=== PATIENT | male | born 1990 | race Caucasian/White ===

== ENCOUNTER 2016-10-11 09:03 | Emergency (ER) | payer SELFPAY ==
[~2016-10-11] VITALS: Ht 172.7 cm; Wt 80.0 kg
[2016-10-11 09:37] VITALS: BP 121/58; PULSE 70; RESP 20; TEMP 98.7; O2SAT 94
--- NOTE | 2016-10-11 09:55 | PD ---
HPI Chief Complaint: Injury Time Seen by Provider: 09:44 Travel History International Travel<30 days: No Contact w/Intl Traveler<30days: No Traveled to known affect area: No History of Present Illness HPI Patient is a 26-year-old male who presents emergency for evaluation of right hand pain. Patient states he was riding his skateboard at approximately 1 AM when he fell injuring his right hand. He denies any numbness or tingling in his hand, he states it's painful to open and close it. He denies any significant past medical history. Patient denies any IV drug use. Denies any head injury or loss of consciousness. PFSH Past Medical History Medical History: Denies Significant Hx Social History Alcohol Use: No Tobacco Use: Yes Substance Use: No Allergies-Medications (Allergen,Severity, Reaction): Coded Allergies: No Known Allergies (Unverified , 10/11/16) Reported Meds & Prescriptions Reported Meds & Active Scripts Active Ibuprofen 800 Mg Tab 800 Mg PO Q6HR PRN Review of Systems Except as stated in HPI: all other systems reviewed are Neg Musculoskeletal: Positive: Myalgias, Edema, Pain Physical Exam Narrative GENERAL: Well-nourished, well-developed patient. SKIN: Warm and dry. HEAD: Normocephalic. EYES: No scleral icterus. No injection or drainage. NECK: Supple, trachea midline. No JVD or lymphadenopathy. CARDIOVASCULAR: Regular rate and rhythm without murmurs, gallops, or rubs. RESPIRATORY: Breath sounds equal bilaterally. No accessory muscle use. GASTROINTESTINAL: Abdomen soft, non-tender, nondistended. MUSCULOSKELETAL: No cyanosis, edema noted over the dorsal aspect of the right hand, more so over the third, fourth, and fifth MCP. Positive radial pulse, brisk less than 3 second capillary refill, decreased manager of digital strength on the right. BACK: Nontender without obvious deformity. No CVA tenderness. Data Data Last Documented VS Vital Signs Date Time Temp Pulse Resp B/P Pulse Ox O2 Delivery O2 Flow Rate FiO2 10/11/16 09:37 98.7 70 20 121/58 94 Orders Hand, Complete ([id number]) (10/11/16 ) Splinting (10/11/16 ) Ibuprofen (Motrin) (10/11/16 10:45) MDM Medical Decision Making Medical Screen Exam Complete: Yes Emergency Medical Condition: Yes Interpretation(s) Vital Signs Date Time Temp Pulse Resp B/P Pulse Ox O2 Delivery O2 Flow Rate FiO2 10/11/16 09:37 98.7 70 20 121/58 94 Differential Diagnosis Fracture versus sprain versus strain versus contusion versus other Narrative Course Patient is a 26 year old male who presents emergency for evaluation of right hand pain secondary to falling off of his skateboard at approximately 1 AM this morning. Patient states that he fell onto his right hand and knuckles however there are no abrasions to support the fact that he fell onto that hand. The hand is swollen on the dorsal aspect and tender to palpation. Patient is neurovascularly intact, x-rays pending. X-ray of the right hand shows a mildly angulated fracture of the fifth MCP. Patient will be placed in an ulnar gutter splint is neurovascularly intact. He was advised of the findings as well as need for follow-up with a hand surgeon. Patient states that as of October 09, he has health insurance. He was encouraged to come back to emergency department if he is unable to follow-up with hand surgeon. He was advised to come back to emergency department for any new or worsening symptoms. Patient verbalizes understanding of these instructions. He states he's had multiple broken bones in the past and knows what to do. Patient is stable for discharge. Diagnosis Primary Impression: Hand fracture, right Qualified Code: S62.91XA - Hand fracture, right, closed, initial encounter Referrals: Leo Long III, MD 3 days Hand Surgeon 3 days Patient Instructions: General Instructions, Hand Fracture (ED) Additional Instructions: Follow-up with hand surgeon, the name of a hand surgeon has been provided to you on your discharge information. You can choose to follow-up with hand surgeon of your choice or based on your insurance company's preference Returned to the Emergency department for any new or worsening symptoms or if you are unable to follow-up with a specialist for any reason Follow-up with your primary doctor Med/Other Pt SpecificInfo: Prescription(s) given Scripts Ibuprofen 800 Mg [id number] Mg PO Q6HR PRN (PAIN) #40 TAB Ref 0 Prov:Nicole Crockett 10/11/16 Nicole Crockett Oct 11, 2016 09:55 Condition: Stable Nicoel Crockett Oct 11, 2016 09:55
--- NOTE | 2016-10-11 10:28 | RADRPT ---
EXAM DATE/TIME: 10/11/2016 10:12 [facility] COMPARISON: No previous studies available for comparison. INDICATIONS : Patient states was riding skateboard last night and fell off, hitting right hand on the ground. Arrow indicating where most of pain is located. MEDICAL HISTORY : None. SURGICAL HISTORY : None. ENCOUNTER: Initial ACUITY: 1 day PAIN SCORE: 8/10 LOCATION: Right Hand FINDINGS: There is a mildly angulated fracture of the distal right fifth metacarpal with overlying soft tissue swelling. No dislocation. CONCLUSION: 1. Mildly angulated fracture distal right fifth metacarpal with overlying soft tissue swelling. Peterson Almeida MD on October 11, 2016 at 10:25 Board Certified Radiologist. This report was verified electronically.
[2016-10-11] MEDS ORDERED: IBUPROFEN 800 MG TAB PO ONE (10:45)
[2016-10-11] MEDS ORDERED: IBUP800T23 PO (10:50)
== END 2016-10-11 11:31 | disposition home or self-care (01) ==
LOC: NEPB 09:03
DX: S62.91XA Unspecified fracture of right hand, initial encounter for closed fracture (principal); V00.131A Fall from skateboard, initial encounter; Y93.51 Activity, roller skating (inline) and skateboarding
CPT/HCPCS: 29125; 73130

== ENCOUNTER 2016-12-12 20:09 | Emergency (ER) | payer SELFPAY ==
[~2016-12-12] VITALS: Ht 172.7 cm; Wt 72.0 kg
[~2016-12-12 20:09] MED LIST: IBUP800T23 PO
[2016-12-12 20:11] VITALS: BP 123/70; PULSE 74; RESP 18; TEMP 98.1; O2SAT 98
[2016-12-12] MEDS ORDERED: DICL75TA PO (22:44)
[2016-12-12] MEDS ORDERED: CLIN150 PO (22:44)
[2016-12-12] MEDS ORDERED: CLINDAMYCIN PHOS 600 MG/4 ML VIAL IM ONE (22:45)
[2016-12-12] MEDS ORDERED: IBUPROFEN 800 MG TAB PO ONE (22:45)
--- NOTE | 2016-12-12 22:48 | PD ---
HPI Chief Complaint: Skin Problem Time Seen by Provider: 22:44 Travel History International Travel<30 days: No Contact w/Intl Traveler<30days: No Traveled to known affect area: No History of Present Illness HPI 26-year-old white male presents to emergency Department with a 2 to three-day history of right inner thigh redness, swelling and pain. 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 He does get his legs chafed at times. He is noted subjective fever and chills, cough, congestion, pleuritic chest wall pain and general malaise. He denies any shortness of breath or wheezing. No nausea vomiting. No abdominal pain or diarrhea. No dysuria or frequency. Symptoms are moderate. [facility] Past Medical History Narrative Medical Asthma as a child Diminished Hearing: No Tetanus Vaccination: < 5 Years Past Surgical History Surgical History: No Previous Surgery Other Surgery: Yes (RIGHT HAND) Social History Alcohol Use: No Tobacco Use: Yes (/ PPD) Substance Use: No Allergies-Medications (Allergen,Severity, Reaction): Coded Allergies: No Known Allergies (Unverified , 12/12/16) Reported Meds & Prescriptions Reported Meds & Active Scripts Active Ibuprofen 800 Mg Tab 800 Mg PO Q6HR PRN Review of Systems Except as stated in HPI: all other systems reviewed are Neg Physical Exam Narrative GENERAL: Well-developed, well-nourished in no apparent distress. Nontoxic appearing. HEAD: Normocephalic, atraumatic. EYES: Pupils equal round and reactive. Extraocular motions intact. No scleral icterus. No injection or drainage. ENT: Nose clear. Throat without erythema, tonsillar hypertrophy or exudate. Uvula midline. Airway patent. NECK: Trachea midline. Supple, nontender, moves head freely. No central bony tenderness or spasm. CARDIOVASCULAR: Regular rate and rhythm without murmurs, gallops, or rubs. RESPIRATORY: Few fine extra wheezes. No Rales or rhonchi. No or stridor distress. GASTROINTESTINAL: Abdomen soft, non-tender, nondistended. No hepato-splenomegaly , or palpable masses. No guarding. EXTREMITIES: No clubbing, cyanosis, or edema. No joint tenderness. BACK: Nontender without deformity. No flank tenderness. NEUROLOGICAL: Awake, alert and oriented x 3 .Cranial nerves grossly intact. Motor and sensory grossly within normal limits. Normal speech. Skin: The patient has a area of erythema, warmth to the right inner thigh measuring 8 x 8 cm. He has several central follicular lesions. There is no fluctuance or pointing. Data Data Last Documented VS Vital Signs Date Time Temp Pulse Resp B/P Pulse Ox O2 Delivery O2 Flow Rate FiO2 12/12/16 20:11 98.1 74 18 123/70 98 Room Air Orders Electrocardiogram (12/12/16 21:26) Clindamycin Inj (Cleocin Inj) (12/12/16 22:45) Ibuprofen (Motrin) (12/12/16 22:45) MDM Medical Decision Making Medical Screen Exam Complete: Yes Emergency Medical Condition: Yes Medical Record Reviewed: Yes Differential Diagnosis MDM: High Differential diagnoses: Abscess, folliculitis, cellulitis, lymphangitis, abrasion, contact dermatitis, URI, bronchitis, pneumonia Narrative Course Patient is given clindamycin 600 mg IM, Motrin 800 mg by mouth. This is right thigh cellulitis, URI Diagnosis Primary Impression: Cellulitis of right thigh Additional Impression: URI, acute Patient Instructions: General Instructions Departure Forms: Tests/Procedures, Work Release Special Instructions: No work 3 days. Additional Instructions: Rest. Elevation. keep clean and dry. Warm compresses. Daily wound care with soap, water and Neosporin. Clindamycin and diclofenac. Recheck with your doctor in 48 hours. Return to the ER for any problems. Med/Other Pt SpecificInfo: Prescription(s) given, Wound Care Scripts Diclofenac Sodium DR 75 Mg Tabdr75 Mg PO BID #20 TAB Prov:Matteo Valladares MD 12/12/16 Clindamycin (Cleocin)150 Mg Stp191 Mg PO Q6H #80 CAP Prov:Matteo Valladares MD 12/12/16 Disposition: 01 DISCHARGE HOME Condition: Stable Peterson Tolbert Dec 12, 2016 22:48
--- NOTE | 2016-12-13 11:34 | EKG ---
Date Performed: 12/12/2016 Time Performed: 21:26:44 PTAGE: 26 years EKG: SINUS BRADYCARDIA BORDERLINE ECG NO PREVIOUS TRACING DOCTOR: Alex Craig Interpretating Date/Time 12/13/2016 11:33:41
== END 2016-12-12 23:09 | disposition home or self-care (01) ==
LOC: NEPB 20:09
DX: L03.115 Cellulitis of right lower limb (principal); R50.9 Fever, unspecified; R05 Cough; R07.81 Pleurodynia; R53.81 Other malaise; R94.31 Abnormal electrocardiogram [ECG] [EKG]; F17.200 Nicotine dependence, unspecified, uncomplicated; Z87.09 Personal history of other diseases of the respiratory system
CPT/HCPCS: 93005; 96372

== ENCOUNTER 2017-07-24 17:10 | Emergency (ER) | payer OTHER ==
[~2017-07-24] VITALS: Ht 172.7 cm; Wt 67.0 kg
[~2017-07-24 17:10] MED LIST changes: +CLIN150 PO; +DICL75TA PO
[2017-07-24 17:48] VITALS: BP 120/70; PULSE 63; RESP 19; TEMP 98.1; O2SAT 96
[2017-07-24 18:42] LABS: AUTOMATED NEUTROPHIL # 6.6 TH/MM3 (1.8-7.7); BASOPHIL # 0.1 TH/MM3 (0-0.2); EOSINOPHIL # 0.1 TH/MM3 (0-0.4); HEMATOCRIT 44.4 % (39.0-51.0); HEMO FLAGS DIFF FINAL; LYMPHOCYTE # 2.8 TH/MM3 (1.0-4.8); MEAN CELL VOLUME 87.3 FL (80.0-100.0); MEAN CORPUSCULAR HEMOGLOBIN 30.5 PG (27.0-34.0); MONO % 6.6 % (0.0-8.0); NEUT % 64.4 % (16.0-70.0); PLATELET COUNT 322 TH/MM3 (150-450); RED BLOOD COUNT 5.08 MIL/MM3 (4.50-5.90); RED CELL DISTRIBUTION WIDTH 12.9 % (11.6-17.2); WHITE BLOOD COUNT 10.2 TH/MM3 (4.0-11.0)
[2017-07-24 18:51] LABS: BLOOD, URINE NEG (NEG); CALCIUM OXALATE CRYSTALS,URINE OCC /hpf; COMMENT (UR) CULT NOT INDICATED; CULTURE IF INDICATED CULT NOT INDICATED; GLUCOSE,URINE NEG (NEG); KETONE, URINE NEG (NEG); MUCUS URINE FEW /lpf (OCC); NITRITE,URINE NEG (NEG); URINE COLOR YELLOW (YELLW/STRAW)
[2017-07-24 19:10] LABS: ALKALINE PHOSPHATASE 81 U/L (45-117); ALT (GPT) 59 U/L (12-78); TOTAL BILIRUBIN ADULT 0.5 MG/DL (0.2-1.0)
--- NOTE | 2017-07-24 19:18 | PD ---
HPI Chief Complaint: Psychiatric Symptoms Time Seen by Provider: 17:53 Travel History International Travel<30 days: No Contact w/Intl Traveler<30days: No Traveled to known affect area: No History of Present Illness HPI 27-year-old male presents to the emergency room for evaluation of suicidal ideation. Patient states he wants to kill himself because he has nothing to live for. States he is an IV drug abuser and he is sick of it because it has destroyed his life. Patient was telling his brother these things this morning and his brother called 911. States he normally injects IV heroin. He is not sensitive 3 days. States he has been going through withdrawals including severe restless leg syndrome, chills, and nausea with vomiting. This morning he injected a form of Suboxone. He also took a bunch of pills this morning to counteract withdrawal symptoms. Pills included Robaxin and ibuprofen. Patient denies any alcohol use. Denies chronic medical conditions. He does report some left-sided chest pain. He has history of cocaine abuse. [facility] Past Medical History Medical History: Denies Significant Hx Diminished Hearing: No Tetanus Vaccination: Unknown Influenza Vaccination: No Past Surgical History Other Surgery: Yes (RIGHT HAND) Social History Alcohol Use: No Tobacco Use: Yes (1/2 PPD) Substance Use: Yes ("ANYTHING") Allergies-Medications (Allergen,Severity, Reaction): Coded Allergies: No Known Allergies (Unverified , 07/24/17) Reported Meds & Prescriptions Reported Meds & Active Scripts Active No Active Prescriptions or Reported Medications Review of Systems Except as stated in HPI: all other systems reviewed are Neg Physical Exam Narrative GENERAL: Well-nourished, well-developed male in no acute distress. Afebrile. Ambulatory. SKIN: Focused skin assessment warm/dry. Multiple track osman to bilateral upper and shortness. HEAD: Normocephalic. EYES: No scleral icterus. No injection or drainage. NECK: Supple, trachea midline. No JVD or lymphadenopathy. CARDIOVASCULAR: Regular rate and rhythm without murmurs, gallops, or rubs. RESPIRATORY: Breath sounds equal bilaterally. No accessory muscle use. PSYCHIATRIC: No delusional thought processes. No hallucinations. Depressed mood. Normal affect Data Data Last Documented VS Vital Signs Date Time Temp Pulse Resp B/P (MAP) Pulse Ox O2 Delivery O2 Flow Rate FiO2 07/24/17 17:48 98.1 63 19 120/70 (87) 96 Orders Orders Complete Blood Count With Diff (07/24/17 17:36) Comprehensive Metabolic Panel (07/24/17 17:36) Urinalysis - C+S If Indicated (07/24/17 17:36) Psych Screen (07/24/17 17:36) Drug Screen, Random Urine (07/24/17 17:36) Alcohol (Ethanol) (07/24/17 17:36) Salicylates (Aspirin) (07/24/17 17:36) Tylenol (Acetaminophen) (07/24/17 17:36) Troponin I (07/24/17 19:12) Ckmb (Isoenzyme) Profile (07/24/17 19:12) Electrocardiogram (07/24/17 ) Lorazepam (Ativan) (07/24/17 20:45) Labs Laboratory Tests Test 07/24/17 17:35 White Blood Count 10.2 TH/MM3 Red Blood Count 5.08 MIL/MM3 Hemoglobin 15.5 GM/DL Hematocrit 44.4 % Mean Corpuscular Volume 87.3 FL Mean Corpuscular Hemoglobin 30.5 PG Mean Corpuscular Hemoglobin Concent 35.0 % Red Cell Distribution Width 12.9 % Platelet Count 322 TH/MM3 Mean Platelet Volume 7.6 FL Neutrophils (%) (Auto) 64.4 % Lymphocytes (%) (Auto) 27.0 % Monocytes (%) (Auto) 6.6 % Eosinophils (%) (Auto) 1.0 % Basophils (%) (Auto) 1.0 % Neutrophils # (Auto) 6.6 TH/MM3 Lymphocytes # (Auto) 2.8 TH/MM3 Monocytes # (Auto) 0.7 TH/MM3 Eosinophils # (Auto) 0.1 TH/MM3 Basophils # (Auto) 0.1 TH/MM3 CBC Comment DIFF FINAL Differential Comment Urine Color YELLOW Urine Turbidity CLEAR Urine pH 6.0 Urine Specific [place] 1.031 Urine Protein TRACE mg/dL Urine Glucose (UA) NEG mg/dL Urine Ketones NEG mg/dL Urine Occult Blood NEG Urine Nitrite NEG Urine Bilirubin NEG Urine Urobilinogen 2.0 MG/DL Urine Leukocyte Esterase NEG Urine RBC LESS THAN 1 /hpf Urine WBC LESS THAN 1 /hpf Urine Calcium Oxalate Crystals OCC /hpf Urine Mucus FEW /lpf Microscopic Urinalysis Comment CULT NOT INDICATED Blood Urea Nitrogen 14 MG/DL Creatinine 0.93 MG/DL Random Glucose 85 MG/DL Total Protein 8.9 GM/DL Albumin 4.0 GM/DL Calcium Level 9.8 MG/DL Alkaline Phosphatase 81 U/L Aspartate Amino Transf (AST/SGOT) 43 U/L Alanine Aminotransferase (ALT/SGPT) 59 U/L Total Bilirubin 0.5 MG/DL Sodium Level 138 MEQ/L Potassium Level 4.0 MEQ/L Chloride Level 105 MEQ/L Carbon Dioxide Level 26.6 MEQ/L Anion Gap 6 MEQ/L Estimat Glomerular Filtration Rate 97 ML/MIN Total Creatine Kinase 88 U/L Troponin I LESS THAN 0.02 NG/ML Salicylates Level 4.1 MG/DL Urine Opiates Screen POS Acetaminophen Level LESS THAN 2.0 MCG/ML Urine Barbiturates Screen NEG Urine Amphetamines Screen NEG Urine Benzodiazepines Screen POS Urine Cocaine Screen POS Urine Cannabinoids Screen POS Ethyl Alcohol Level LESS THAN 3 MG/DL MDM Medical Decision Making Medical Screen Exam Complete: Yes Emergency Medical Condition: Yes Medical Record Reviewed: Yes Differential Diagnosis Suicidal ideation, bipolar disorder, withdrawal, substance abuse mood disorder Narrative Course 27-year-old male presents to the emergency room via police under Ricks act for evaluation of suicidal ideation. Patient states he is an IV drug user and fed up with his life because he has lost everything over the past 2 years. He states he has no reason to live. He reports left-sided chest pain at this time without radiation, nausea, vomiting, or shortness of breath. EKG shows a rhythm with a rate of [address] changes.. Basic labs obtained. CBC and CMP are unremarkable. Troponin and CK-MB are negative. UA unremarkable. Drug screen positive for opioids, benzos, cocaine, and cannabinoids. Salicylate and acetaminophen within normal limits. Patient is visibly shaking because of opioid withdrawal. For this he was given 0.5 mg by mouth Ativan. Patient is medically cleared for psychiatric evaluation at this time. Diagnosis Primary Impression: Medical clearance for psychiatric admission Scripts No Active Prescriptions or Reported Meds Condition: Bessy Wild Jul 24, 2017 19:18
[2017-07-24 19:22] LABS: ACETAMINOPHEN LESS THAN 2.0 MCG/ML (10.0-30.0); ALCOHOL LESS THAN 3 MG/DL (0-5); ANION GAP 6 MEQ/L (5-15); AST (GOT) 43 U/L (15-37); BICARBONATE 26.6 MEQ/L (21.0-32.0); BLOOD UREA NITROGEN 14 MG/DL (7-18); CHLORIDE 105 MEQ/L (98-107); GLOMERULAR FILTRATION RATE 97 ML/MIN (>89); SODIUM (NA) 138 MEQ/L (136-145)
[2017-07-24 20:09] LABS: CREATINE KINASE 88 U/L (39-308)
[2017-07-24] MEDS ORDERED: LORazepam 0.5 MG TAB PO ONE (20:45)
[2017-07-24 23:00] VITALS: BP 99/49; PULSE 62; RESP 16; TEMP 98.2; O2SAT 98
[2017-07-25] MEDS ORDERED: LORazepam 0.5 MG TAB PO ONE (01:00)
[2017-07-25] MEDS ORDERED: CYCLOBENZAPRINE HCL 10 MG TAB PO ONE (04:15)
[2017-07-25 04:44] VITALS: BP 108/54; PULSE 53; RESP 16; TEMP 97.9; O2SAT 99
[2017-07-25 07:00] VITALS: BP 112/58; PULSE 60; RESP 16; O2SAT 99
[2017-07-25 11:00] VITALS: BP 102/69; PULSE 64; RESP 16; TEMP 97.8; O2SAT 99
[2017-07-25] MEDS ORDERED: IBUPROFEN 600 MG TAB PO ONE (12:30)
[2017-07-25 15:00] VITALS: BP 124/77; PULSE 76; RESP 16; TEMP 97.8; O2SAT 98
[2017-07-25 19:48] VITALS: BP 127/75; PULSE 74; RESP 18; O2SAT 99
[2017-07-25] MEDS ORDERED: diphenhydrAMINE HCL 50 MG CAP PO ONE (22:30)
[2017-07-26 02:18] VITALS: BP 112/59; PULSE 17; PULSE 71; RESP 18; O2SAT 98
[2017-07-26] MEDS ORDERED: IBUPROFEN 800 MG TAB PO ONE (05:45)
[2017-07-26 06:30] VITALS: BP 137/63; PULSE 98; RESP 18; O2SAT 99
--- NOTE | 2017-07-26 07:14 | EKG ---
Date Performed: 07/24/2017 Time Performed: 20:38:52 PTAGE: 27 years EKG: SINUS BRADYCARDIA Borderline short MA interval Compared to prior tracing no significant mark nge BORDERLINE ECG PREVIOUS TRACING : 12/12/2016 21.26 DOCTOR: Jayce Slater Interpretating Date/Time 07/26/2017 07:14:52
--- NOTE | 2017-07-26 09:43 | PD ---
History of Present Illness Chief Complaint: Psychiatric Symptoms Time Seen by Provider: 09:25 Travel History International Travel<30 Days: No Contact w/Intl Traveler<30days: No Known affected area: No Legal Status Legal Status: Ricks Act Ricks Act Signed By: Rodger Locke Ricks Act Comment: 07/24/2017 438 PM [facility]IVAS #[id number] History of Present Illness: History of Present Illness HPI 27-year-old male with history of substance use disorder and no psychiatric history who presents to ED under a ricks act. The report states " Yomi is making suicidal statements. Stated he is going to take a handful of pills to end it all. he is also having withdrawal from opiates. EMR reviewed . No previous contact with [facility] psychiatry. Current toxicology is positive for opiates, benzos, cocaine and cannabinoids. The patient has been monitored here in [facility] over extended period of time with no suicidality and no behavioral concerns This morning he tells me that he is feeling well and that " honestly I was never suicidal. I just told the police that so that they could bring me here. I don't want to hurt myself. I want treatment for my addiction and my family is working on it". He denies any psychiatric symptomatology and presents no objective clinical symptoms of depression or anxiety.he is requesting discharge and his brother will be picking him up. PFSH Past Medical History Medical History: Denies Significant Hx Diminished Hearing: No Tetanus Vaccination: Unknown Influenza Vaccination: No Past Surgical History Other Surgery: Yes (RIGHT HAND) Psychiatric History Psychiatric History Hx Psychiatric Treatment: Denies any No hx of previous suicide attempt. History of Inpatient Treatment: No Guns or firearms in home: No Social History Single male, unemployed. Lives with his grandmother. Hx Alcohol Use: No Hx Tobacco Use: Yes (1/2 PPD) Hx Substance Use: Yes (benzos, cocaine, marijuana, opiates) Substance Use Type: Marijuana, Nicotine/Cigarettes, Benzos (Valium,Xanax), Cocaine, Synth Opiates-Pain Pills Other Substances Used: 1ppd Hx of Substance Use Treatment: No Family Psychiatric History Negative Allergies-Medications (Allergen,Severity, Reaction): Coded Allergies: No Known Allergies (Unverified , 07/24/17) Reported Meds & Prescriptions Reported Meds & Active Scripts Active No Active Prescriptions or Reported Medications Review of Systems Except as stated in HPI: all other systems reviewed are Neg Mental Status Examination Appearance: Appropriate Consciousness: Alert Orientation: x4 Motor Activity: Normal gait Speech: Unremarkable Language: Adequate Fund of Knowledge: Adequate Attention and Concentration: Adequate Memory: Unremarkable Mood: Appropriate Affect: Appropriate Thought Process & Associations: Logical, Goal directed Thought Content: Appropriate Hallucination Type: None Delusion Type: None Suicidal Ideation: No Suicidal Plan: No Suicidal Intention: No Homicidal Ideation: No Homicidal Plan: No Homicidal Intention: No Insight: Adequate Judgment: Adequate MDM Medical Decision Making Medical Record Reviewed: Yes Assessment/Plan 27-year-old male with history of substance use disorder and no psychiatric history who presents to ED under a ricks act. The report states " Yomi is making suicidal statements. Stated he is going to take a handful of pills to end it all. he is also having withdrawal from opiates. Patient was monitored in secure environment with no suicidality. he admits to having reported he was feeling suicidal in order to be transported to the hospital to finish his detox process from opiates. He denies ever feeling suicidal. he is future oriented and wants to go into a rehabilitation program. he is future oriented with adequate protective factors. He does not show evidence of an unstable mental illness as per Ricks act. Lift Ricks act. Clear psychiatrically for discharge. Will be provided referrals to NA groups. Psychoeducation provided. Orders Orders Ibuprofen (Motrin) (07/25/17 12:30) Diphenhydramine (Benadryl) (07/25/17 22:30) Ibuprofen (Motrin) (07/26/17 05:45) Diet Regular Basic (07/26/17 Breakfast) Results Vital Signs Date Time Temp Pulse Resp B/P (MAP) Pulse Ox O2 Delivery O2 Flow Rate FiO2 07/26/17 06:30 98 18 137/63 (87) 99 Room Air 07/26/17 02:18 71 18 112/59 (76) 98 Room Air 07/25/17 19:48 74 18 127/75 (92) 99 Room Air 07/25/17 15:00 97.8 76 16 124/77 (93) 98 Room Air 07/25/17 13:28 16 07/25/17 11:00 97.8 64 16 102/69 (80) 99 Room Air Diagnosis Primary Impression: Opiate dependence Psychiatrically Cleared: Yes Additional Instructions: NA meetings Med/ Other Pt Specific Info: No Meds Exist/No RX given Prescriptions No Active Prescriptions or Reported Meds Disposition: 01 DISCHARGE HOME Condition: Stable Problem Qualifiers Primary Impression: Opiate dependence Qualified Codes: F11.23 - Opioid dependence with withdrawal Venecia Baez Jul 26, 2017 09:43
--- NOTE | 2017-07-26 09:58 | PD ---
Physical Exam Time Seen by Provider: 09:56 TAMICA Lockwood, has evaluated the patient, lifted the Ricks act and cleared the patient for discharge. The patient for follow-up with NA. Data Data Last Documented VS Vital Signs Date Time Temp Pulse Resp B/P (MAP) Pulse Ox O2 Delivery O2 Flow Rate FiO2 07/26/17 06:30 98 18 137/63 (87) 99 Room Air 07/25/17 15:00 97.8 Orders Orders Complete Blood Count With Diff (07/24/17 17:36) Comprehensive Metabolic Panel (07/24/17 17:36) Urinalysis - C+S If Indicated (07/24/17 17:36) Psych Screen (07/24/17 17:36) Drug Screen, Random Urine (07/24/17:36) Alcohol (Ethanol) (07/24/17 17:36) Salicylates (Aspirin) (07/24/17 17:36) Tylenol (Acetaminophen) (07/24/17 17:36) Troponin I (07/24/17 19:12) Ckmb (Isoenzyme) Profile (07/24/17 19:12) Electrocardiogram (07/24/17 ) Lorazepam (Ativan) (07/24/17 20:45) Lorazepam (Ativan) (07/25/17 01:00) Cyclobenzaprine (Flexeril) (07/25/17 04:15) Diet Regular Basic (07/25/17 Breakfast) Ibuprofen (Motrin) (07/25/17 12:30) Diphenhydramine (Benadryl) (07/25/17 22:30) Ibuprofen (Motrin) (07/26/17 05:45) Diet Regular Basic (07/26/17 Breakfast) Labs Laboratory Tests Test 07/24/17 17:35 White Blood Count 10.2 TH/MM3 Red Blood Count 5.08 MIL/MM3 Hemoglobin 15.5 GM/DL Hematocrit 44.4 % Mean Corpuscular Volume 87.3 FL Mean Corpuscular Hemoglobin 30.5 PG Mean Corpuscular Hemoglobin Concent 35.0 % Red Cell Distribution Width 12.9 % Platelet Count 322 TH/MM3 Mean Platelet Volume 7.6 FL Neutrophils (%) (Auto) 64.4 % Lymphocytes (%) (Auto) 27.0 % Monocytes (%) (Auto) 6.6 % Eosinophils (%) (Auto) 1.0 % Basophils (%) (Auto) 1.0 % Neutrophils # (Auto) 6.6 TH/MM3 Lymphocytes # (Auto) 2.8 TH/MM3 Monocytes # (Auto) 0.7 TH/MM3 Eosinophils # (Auto) 0.1 TH/MM3 Basophils # (Auto) 0.1 TH/MM3 CBC Comment DIFF FINAL Differential Comment Urine Color YELLOW Urine Turbidity CLEAR Urine pH 6.0 Urine Specific Industry 1.031 Urine Protein TRACE mg/dL Urine Glucose (UA) NEG mg/dL Urine Ketones NEG mg/dL Urine Occult Blood NEG Urine Nitrite NEG Urine Bilirubin NEG Urine Urobilinogen 2.0 MG/DL Urine Leukocyte Esterase NEG Urine RBC LESS THAN 1 /hpf Urine WBC LESS THAN 1 /hpf Urine Calcium Oxalate Crystals OCC /hpf Urine Mucus FEW /lpf Microscopic Urinalysis Comment CULT NOT INDICATED Blood Urea Nitrogen 14 MG/DL Creatinine 0.93 MG/DL Random Glucose 85 MG/DL Total Protein 8.9 GM/DL Albumin 4.0 GM/DL Calcium Level 9.8 MG/DL Alkaline Phosphatase 81 U/L Aspartate Amino Transf (AST/SGOT) 43 U/L Alanine Aminotransferase (ALT/SGPT) 59 U/L Total Bilirubin 0.5 MG/DL Sodium Level 138 MEQ/L Potassium Level 4.0 MEQ/L Chloride Level 105 MEQ/L Carbon Dioxide Level 26.6 MEQ/L Anion Gap 6 MEQ/L Estimat Glomerular Filtration Rate 97 ML/MIN Total Creatine Kinase 88 U/L Troponin I LESS THAN 0.02 NG/ML Salicylates Level 4.1 MG/DL Urine Opiates Screen POS Acetaminophen Level LESS THAN 2.0 MCG/ML Urine Barbiturates Screen NEG Urine Amphetamines Screen NEG Urine Benzodiazepines Screen POS Urine Cocaine Screen POS Urine Cannabinoids Screen POS Ethyl Alcohol Level LESS THAN 3 MG/DL MDM Supervised Visit with LEIGHANN: No Narrative TAMICA Ramos, has evaluated the patient, lifted the Ricks act and cleared the patient for discharge. The patient for follow-up with NA. Patient contracts safety. Denies suicidal or homicidal ideations. Patient will be provided community resource packet to [facility] for follow-up. Has friends and family for support. Patient is medically cleared for discharge. Diagnosis Primary Impression: Opiate dependence Qualified Codes: F11.23 - Opioid dependence with withdrawal Referrals: [facility] (Out patient) [facility] Primary Care Physician Psychiatrist Yolie MILLAN Behavioral Patient Instructions: General Instructions, Opioid Dependence (ED), Polysubstance Abuse (ED) Additional Instruction: Contract safety to your self and others Stop using drugs Follow-up with Narcotics Anonymous meetings Follow-up with psychiatry Follow-up with primary care provider Follow-up with Christ Cesar/YANA Return to the emergency department immediately with worsening of symptoms Med/Other Pt SpecificInfo: No Meds Exist/No RX given Scripts No Active Prescriptions or Reported Meds Disposition: 01 DISCHARGE HOME Condition: Stable Altagracia Love Jul 26, 2017 09:58
[2017-07-26 10:24] VITALS: BP 137/63; TEMP 98
== END 2017-07-26 09:55 | disposition home or self-care (01) ==
LOC: NEDAMB 17:10 → NEPJ 07-26 09:55
DX: F11.23 Opioid dependence with withdrawal (principal); R45.851 Suicidal ideations; G25.81 Restless legs syndrome; F17.200 Nicotine dependence, unspecified, uncomplicated
CPT/HCPCS: 80053; 80307; 81001; 82550; 84484; 85025; 93005; 99284; Q0163